=== PATIENT | female | born 2000 | race Two or more races ===

== ENCOUNTER → 2025-03-11 10:35 | Outpatient (CLI) | payer OTHER | END | disposition home or self-care (01) | LOC: PRENATAL 10:35 | PROVIDERS: ATTEND Obstetrics & Gynecology Maternal & Fetal Medicine | DX: O44.00 Complete placenta previa NOS or without hemorrhage, unspecified trimester (principal); Z3A.20 20 weeks gestation of pregnancy ==

== ENCOUNTER 2025-03-24 21:40 | Emergency (ER) | payer OTHER ==
[~2025-03-24] VITALS: Ht 149.9 cm; Wt 48.5 kg
[2025-03-24] MEDS ORDERED: FAMOtidine 10 MG/ML (4ML VIAL) IV ONE (23:30)
[2025-03-24] MEDS ORDERED: 0.9 % SODIUM CHLORIDE 1,000 ML IV ONE (23:30)
[2025-03-24] MEDS ORDERED: ACETAMINOPHEN 500 MG GEL..CAP PO ONE (23:30)
[2025-03-25] MEDS ORDERED: ACETAMINOPHEN 500 MG GEL..CAP PO ONE (01:12)
[2025-03-25] MEDS ORDERED: FAMOTIDINE/PF 20 MG/2 ML VIAL ONE (01:12)
[2025-03-25 01:56] LABS: BASO % 0.2 % (0.1-1.2); EOS # 0.01 (0.04-0.54); EOS % 0.2 % (0.7-7.0); LYMPH # 0.62 (1.18-3.74); LYMPH % 10.0 % (19.3-53.1); MEAN PLATELET VOLUME 10.80 fl (9.4-12.4); MONO # 0.55 (0.24-0.82); MONO % 8.9 % (4.7-12.5); NEUT # 4.98 (1.56-6.13); NEUT % 80.4 % (34.0-71.1); RED CELL DISTRIBUTION WIDTH 15.0 % (11.6-14.4)
[2025-03-25 03:35] LABS: COVID-19 AG NEGATIVE (NEGATIVE)
[2025-03-25] MEDS ORDERED: PEPCID AC20 MG PO (03:56)
[2025-03-25] MEDS ORDERED: OSEL75CA PO (03:56)
== END 2025-03-25 04:08 | disposition home or self-care (01) ==
LOC: ER 21:41
PROVIDERS: General Practice
DX: O99.512 Diseases of the respiratory system complicating pregnancy, second trimester (principal); J10.1 Influenza due to other identified influenza virus with other respiratory manifestations; Z3A.22 22 weeks gestation of pregnancy; Z20.822 Contact with and (suspected) exposure to COVID-19

== ENCOUNTER 2025-04-03 23:54 | Outpatient (CLI) | payer OTHER ==
[~2025-04-03 23:54] MED LIST: OSEL75CA PO; PEPCID AC20 MG PO
[2025-04-03 23:58] VITALS: BP 112/68
[2025-04-04] MEDS ORDERED: RINGERS SOLUTION,LACTATED 1,000 ML IV SCH (00:15)
[2025-04-04] MEDS ORDERED: PROMETHAZINE HCL 25 MG/ML AMPUL IV PRN (00:15)
[2025-04-04] MEDS ORDERED: PRENATAL + DHA1 EAC1 PO (00:51)
[2025-04-04 01:09] LABS: BASO % 0.2 % (0.1-1.2); EOS # 0.00 (0.04-0.54); EOS % 0.0 % (0.7-7.0); LYMPH # 0.26 (1.18-3.74); LYMPH % 2.5 % (19.3-53.1); MEAN PLATELET VOLUME 10.50 fl (9.4-12.4); MONO # 0.22 (0.24-0.82); MONO % 2.1 % (4.7-12.5); NEUT # 10.04 (1.56-6.13); NEUT % 94.7 % (34.0-71.1); RED CELL DISTRIBUTION WIDTH 14.5 % (11.6-14.4); URINE APPEARANCE Clear; URINE BILIRRUBIN Negative (NEGATIVE); URINE BLOOD Negative; URINE COLOR Yellow; URINE GLUCOSE Negative (NEGATIVE); URINE LEUKOCYTE Negative; URINE NITRATE Negative; URINE PROTEIN Trace (NEGATIVE); URINE UROBILINOGEN 0.2 E.U./dl
[2025-04-04 01:10] LABS: URINE EPITHELIAL CELLS 55.0 uL (0.0-38.8); URINE RBC 3.8 uL (0.0-20.8); URINE WBC 27.8 uL (0.0-23.2)
[2025-04-04 01:26] LABS: COVID-19 AG NEGATIVE (NEGATIVE)
[2025-04-04 01:55] LABS: URINE CAST 0.14 uL (0.0-1.40); URINE KETONE >=160 (NEGATIVE)
[2025-04-04 06:16] VITALS: BP 102/55; O2SAT 98
[2025-04-04] MEDS ORDERED: AZITHROMYCIN 500 MG TABLET PO SCH (09:00)
[2025-04-04] MEDS ORDERED: FAMOTIDINE/PF 20 MG/2 ML VIAL IV PUSH SCH (09:00)
[2025-04-04 11:53] VITALS: BP 102/55
== END 2025-04-04 11:53 | disposition home or self-care (01) ==
LOC: OBS/DEL 23:54
PROVIDERS: ATTEND Obstetrics & Gynecology
DX: O26.892 Other specified pregnancy related conditions, second trimester (principal); R11.2 Nausea with vomiting, unspecified; Z3A.24 24 weeks gestation of pregnancy